=== PATIENT | female | born 1965 | race Caucasian/White ===

== ENCOUNTER → 2023-11-24 10:42 | Outpatient (REF) | payer OTHER, SELFPAY ==
[2023-11-24 11:46] LABS: ALT (SGPT) 37 U/L (0-35); AST (SGOT) 28 U/L (14-36); Albumin 4.4 g/dl (3.5-5.0); Alkaline Phosphatase 85 U/L (38-126); Blood Urea Nitrogen 22 mg/dl (7-17); Calcium 9.8 mg/dl (8.4-10.2); Carbon Dioxide 27 mmol/L (22-30); Chloride 104 mmol/L (98-107); Glucose 119 mg/dl (70-99); HDL Cholesterol 44 mg/dl; LDL Cholesterol, Calculated 138 mg/dl; Potassium 4.5 mmol/L (3.5-5.1); Sodium 141 mmol/L (135-145); Total Bilirubin 0.5 mg/dl (0.2-1.3); Total Cholesterol 213 mg/dl (50-199); Total Protein 7.5 g/dl (6.3-8.2); Triglyceride 155 mg/dl (10-149); Very Low Density Lipoprotein 31 mg/dl (0-30); eGFR > 60.00
[2023-11-24 11:48] LABS: Microalbumin, Random Urine 1.8 mg/dl (0.6-1.7)
[2023-11-24 11:51] LABS: Microalbumin/creatinine Ratio 8.9 mg/g
[2023-11-24 12:15] LABS: TSH 0.79 uIU/ml (0.47-4.68)
[2023-11-24 12:50] LABS: Glycohemoglobin (HgbA1c) 6.2 % (4.0-5.6)
== END ==
LOC: REG 10:42
PROVIDERS: ATTENDING PHYSICIAN Nurse Practitioner Family; FAMILY PHYSICIAN Nurse Practitioner Family
DX: E78.2 Mixed hyperlipidemia (principal); E03.9 Hypothyroidism, unspecified; E11.9 Type 2 diabetes mellitus without complications
CPT/HCPCS: 36415; 80053; 80061; 82043; 82570; 83036; 84443

== ENCOUNTER → 2024-05-03 11:43 | Outpatient (REF) | payer OTHER, SELFPAY ==
[2024-05-03 13:28] LABS: ALT (SGPT) 41 U/L (0-35); AST (SGOT) 39 U/L (14-36); Albumin 4.2 g/dl (3.5-5.0); Alkaline Phosphatase 98 U/L (38-126); Blood Urea Nitrogen 17 mg/dl (7-17); Calcium 9.5 mg/dl (8.4-10.2); Carbon Dioxide 27 mmol/L (22-30); Chloride 105 mmol/L (98-107); Glucose 104 mg/dl (70-99); Potassium 4.4 mmol/L (3.5-5.1); Sodium 139 mmol/L (135-145); Total Bilirubin 0.5 mg/dl (0.2-1.3); eGFR > 60.00
[2024-05-04 08:59] LABS: Glycohemoglobin (HgbA1c) 6.1 % (4.0-5.6)
== END ==
LOC: REG 11:43
PROVIDERS: ATTENDING PHYSICIAN Nurse Practitioner Family
DX: E11.9 Type 2 diabetes mellitus without complications (principal); R74.01 Elevation of levels of liver transaminase levels; E03.9 Hypothyroidism, unspecified
CPT/HCPCS: 36415; 80053; 83036

== ENCOUNTER → 2024-10-04 11:27 | Outpatient (REF) | payer OTHER, SELFPAY ==
[2024-10-04 13:27] LABS: Urine Albumin Negative (Neg - Trace); Urine Bilirubin Negative (Negative); Urine Character Clear (Clear); Urine Color Yellow; Urine Glucose Negative (Negative); Urine Ketone Negative (Negative); Urine Leukocyte 2+ (Negative); Urine Nitrite Negative (Negative); Urine Occult Blood Trace (Negative); Urine Urobilinogen Negative (Neg - 1+)
[2024-10-04 14:10] LABS: ALT (SGPT) 29 U/L (0-35); AST (SGOT) 28 U/L (14-36); Albumin 4.1 g/dl (3.5-5.0); Alkaline Phosphatase 87 U/L (38-126); Blood Urea Nitrogen 17 mg/dl (7-17); Calcium 9.3 mg/dl (8.4-10.2); Carbon Dioxide 28 mmol/L (22-30); Chloride 103 mmol/L (98-107); Glucose 114 mg/dl (70-99); HDL Cholesterol 40 mg/dl; LDL Cholesterol, Calculated 93 mg/dl; Potassium 4.3 mmol/L (3.5-5.1); Sodium 140 mmol/L (135-145); Total Bilirubin 0.5 mg/dl (0.2-1.3); Total Cholesterol 180 mg/dl (50-199); Total Protein 7.1 g/dl (6.3-8.2); Triglyceride 238 mg/dl (10-149); Very Low Density Lipoprotein 47 mg/dl (0-30); eGFR > 60.00
[2024-10-04 14:11] LABS: Urine Mucus Moderate; Urine Squamous Cell >30 /LPF (Few)
[2024-10-04 14:12] LABS: Urine Bacteria Moderate (Negative)
[2024-10-04 14:17] LABS: Urine Protein 6 mg/dl
[2024-10-04 15:12] LABS: Glycohemoglobin (HgbA1c) 6.3 % (4.0-5.6)
== END ==
LOC: REG 11:27
PROVIDERS: ATTENDING PHYSICIAN Internal Medicine Rheumatology; FAMILY PHYSICIAN Nurse Practitioner Family
DX: I10 Essential (primary) hypertension (principal); E78.1 Pure hyperglyceridemia; E78.2 Mixed hyperlipidemia; E03.9 Hypothyroidism, unspecified; R73.9 Hyperglycemia, unspecified; L40.9 Psoriasis, unspecified; M79.7 Fibromyalgia; R80.9 Proteinuria, unspecified
CPT/HCPCS: 36415; 80053; 80061; 81003; 81015; 82570; 83036; 84156

== ENCOUNTER → 2024-10-28 19:29 | Outpatient (REF) | payer OTHER, SELFPAY | LOC: WDC 19:29 | PROVIDERS: ATTENDING PHYSICIAN Obstetrics & Gynecology Gynecology; FAMILY PHYSICIAN Nurse Practitioner Family | DX: Z12.31 Encounter for screening mammogram for malignant neoplasm of breast (principal); Z01.419 Encounter for gynecological examination (general) (routine) without abnormal findings | CPT/HCPCS: 77063; 77067 ==

== ENCOUNTER 2024-12-09 18:21 | Day surgery (SDC) | payer OTHER, SELFPAY ==
[2024-12-09] VITALS (14 sets, daily range): BP systolic 117–177; BP diastolic 59–104; BMI 39.8
[2024-12-09 14:25] LABS: % Basophils 0.4 % (0-2); % Eosinophils 0.9 % (0-6); % Immature Granulocytes 0.5 % (0-0.5); % Lymphocytes 11.6 % (20.5-51.1); % Monocytes 7.2 % (1.7-9.3); % Neutrophils 79.4 % (42.2-75.2); Absolute Basophils 0.1 10^3/uL (0-0.2); Absolute Eosinophils 0.1 10^3/uL (0-0.7); Absolute Immature Granulocytes 0.1 10^3/uL (0-0.05); Absolute Lymphocytes 1.8 10^3/uL (1.2-3.4); Absolute Monocytes 1.1 10^3/uL (0.1-0.6); Absolute Neutrophils 12.6 10^3/uL (1.4-6.5); Hematocrit 39.2 % (37.0-47.0); Hemoglobin 13.2 g/dL (12.0-16.0); Mean Corp Hgb Conc. 33.7 g/dL (33.0-37.0); Mean Corpuscular Hgb 29.7 pg (27.0-31.0); Mean Corpuscular Volume 88.1 fL (81.0-99.0); Mean Platelet Volume 11.1 fL (7.4-10.4); Nucleated Red Blood Cells % 0 %; Platelet Count 249 10^3/uL (130-400); Red Blood Cell Count 4.45 10^6/uL (4.20-5.40); Red Cell Dist. Width 12.4 % (11.5-14.5); White Blood Cell Count 15.8 10^3/uL (4.8-10.8)
--- NOTE | 2024-12-09 14:38 | ED.GENMED ---
History of Present Illness
General
Chief Complaint: Flank Pain
Time Seen by Provider: 12/09/24 14:24
History of Present Illness
History of Present Illness:
59-year-old female with history of hypertension presents to the emergency department for evaluation of sudden onset right flank pain that began this morning. Pain was mild to moderate in nature however gradually worsened throughout the day with a
sudden increase in pain rating across the abdomen. Pain is rated as 8 out of 10 currently, radiates from the right flank to the right lower quadrant. No fevers or chills but does have nausea and vomiting. Prior abdominal surgical history includes
a hysterectomy.
Review of Systems
Review of Systems
Allergies reviewed?: Yes
All Other Systems: ROS reviewed and negative except as documented in HPI and ROS
Phy Exam
Physical Exam
Physical Exam:
GEN: Well appearing, NAD, WDWN
HEENT: Oral mucosa moist, no scleral icterus
Cardiac: Regular rate
Lung: No respiratory distress, no tachypnea
Abdomen: Significant tenderness to the right upper and right lower quadrant as well as left lower quadrant, no rigidity, no CVA tenderness
MSK: No gross deformity or injuries
Skin: Good color, no pallor or jaundice, no rashes
Neuro: AO x3, moves all extremities freely
Psych: Calm, cooperative
Course
Orders/Labs/Results
Orders:
Orders
12/09/24 13:49
CMP [Comprehensive Metabolic Panel] Urgent
Complete Blood Count/With Diff Urgent
12/09/24 14:37
CT Abd/Pel (IV only)-DH only Urgent
Comment:
Reason For Exam: R flank pain
0.9% Sodium Chloride 1000 ml [Nss] 1,000 ml IV BOLUS
Ketorolac [Toradol] 15 mg IV NOW STA
Ondansetron Injectable [Zofran] 4 mg IV NOW STA
12/09/24 16:05
Urinalysis Reflex To Culture Urgent
Date Specimen was Collected: 12/09/24
Time Specimen was Collected: 15:36
12/09/24 17:00
Piperacillin/Tazo 3.375 Gram [Zosyn] 3.375 gram in 50 ml IV NOW
12/09/24 18:00
Pantoprazole [Protonix IV] 40 mg IV DAILY
12/09/24 18:03
Admit/Transfer Patient As Directed
Co-Sign Provider:
Level of Care: Observation services
Assign to:: Telemetry
Physician / Group: Dr Pacheco
Diagnosis: Appendicitis
Reason for Telemetry: Arrhythmia
Date to Stop Telemetry: 12/12/24
Time to Stop Telemetry: 11:00
PRN Pain Medication Management As Directed
May give lesser potent ordered pain med per pt: Yes
preference::
Protocol:: Medication orders for pain may be administered in a
manner that supports deferring to patient preference
when the pt is:
- Requesting an ordered lesser potent pain medication.
Least to most potent pain medications are defined
as: acetaminophen < NSAID < tramadol < opioids
(morphine, oxycodone, hydromorphone).
- Requesting a lesser dose of the same medication IF
ORDERED.
- Requesting a less intrusive route of administration
if both routes are prescribed by the provider (PO <
IV).
12/09/24 18:04
Code Status As Directed
Resuscitation Status: Full Code
12/09/24 18:06
HYDROmorphone [Dilaudid] 0.5 mg IV Q4HPRN PRN
HydrALAZINE [Apresoline] 10 mg IV Q6HPRN PRN
12/09/24 18:08
Consult Surgery [SURGICAL CONSULT] Urgent
Consulting Provider: Ralph Ontiveros
Was physician already notified: Yes
Reason for consult: Appendicitis
12/09/24 18:10
MetroNIDAZOLE 500 MG/100 ML [Flagyl 500 mg] 100 ml IV Q8
12/09/24 19:00
Lactated Ringers [Lr] 1,000 ml IV 125 mls/hr
Ondansetron Injectable [Zofran] 4 mg IV Q6HPRN PRN
12/09/24 22:00
CefTRIAXone [Rocephin] 1,000 mg IV Q24H
12/12/24 11:00
DC Protocol for Telemetry ONCE
Abnormal Lab Results
12/09/24
13:49
WBC 15.8 H 10^3/uL
(4.8-10.8)
MPV 11.1 H fL
(7.4-10.4)
Abs Immat Gran (auto) 0.1 H 10^3/uL
(0-0.05)
Absolute Neuts (auto) 12.6 H 10^3/uL
(1.4-6.5)
Absolute Monos (auto) 1.1 H 10^3/uL
(0.1-0.6)
Neutrophils % 79.4 H %
(42.2-75.2)
Lymphocytes % 11.6 L %
(20.5-51.1)
BUN 18 H mg/dl
(7-17)
Glucose 149 H mg/dl
(70-99)
AST 37 H U/L
(14-36)
ALT 41 H U/L
(0-35)
12/09/24 13:49
12/09/24 13:49
Vital Signs
Initial and Last Documented VS:
Initial Vital Signs
Temp Pulse Resp BP Pulse Ox
98.0 F 66 20 177/96 96
12/09/24 13:41 12/09/24 13:41 12/09/24 13:41 12/09/24 13:41 12/09/24 13:41
Last Documented Vital Signs
Temp Pulse Resp BP Pulse Ox
98.3 F 71 14 143/70 98
12/09/24 18:22 12/09/24 19:00 12/09/24 19:00 12/09/24 19:00 12/09/24 19:00
MDM/Problems Addressed
MDM/Problems Addressed:
Imaging obtained due to patient's degree of pain at which point she is found to have acute appendicitis. Case discussed with general surgery, patient would be admitted to the hospitalist service with plans for the OR tonight for definitive
management
*Critical Care Note
Total Time (30-74mins, 75-104mins- exclusive of procedures): Not Applicable
ED Attending Note
-
Portions of this chart may have been created with voice recognition software.� Occasional wrong word or��sound alike� substitutions may have occurred due to the inherent limitations of voice recognition software.
Discharge Plan
Departure
Patient Disposition: Admit
Date of Disposition: 12/09/24
Time of Disposition: 17:41
Admit to: Med/Surg
Presentation/result/management discussed w/ accepting MD/DO: Hospitalist
Discharge Problem:
Acute appendicitis
Interventions
Interventions:
*Risk Screen - Suicide Last Done: 12/09/24 13:41
*General Assessment Last Done: 12/09/24 13:41
*Neglect/Abuse Screening Last Done: 12/09/24 18:32
*ED- Fall Risk Assessment Last Done: 12/09/24 18:32
*ED COVID-19 Vaccine History Last Done: 12/09/24 14:51
QB-Jqkcgj-Umzjgcbpde Assessment Last Done: 12/09/24 18:15
ED-Female Genitourinary Assessment Last Done: 12/09/24 18:15
[2024-12-09 14:43] LABS: ALT (SGPT) 41 U/L (0-35); AST (SGOT) 37 U/L (14-36); Albumin 4.2 g/dl (3.5-5.0); Alkaline Phosphatase 78 U/L (38-126); Blood Urea Nitrogen 18 mg/dl (7-17); Calcium 9.2 mg/dl (8.4-10.2); Carbon Dioxide 26 mmol/L (22-30); Chloride 107 mmol/L (98-107); Glucose 149 mg/dl (70-99); Potassium 4.5 mmol/L (3.5-5.1); Sodium 140 mmol/L (135-145); Total Bilirubin 0.7 mg/dl (0.2-1.3); Total Protein 7.4 g/dl (6.3-8.2); eGFR > 60.00
[2024-12-09] MEDS: TORADOL 15 MG IV (14:52)
[2024-12-09] MEDS: ZOFRAN 4 MG IV (14:52)
[2024-12-09] MEDS: NSS 1000 IV (14:53)
[2024-12-09 16:26] LABS: Urine Albumin Negative (Neg - Trace); Urine Bilirubin Negative (Negative); Urine Character Clear (Clear); Urine Color Yellow; Urine Glucose Negative (Negative); Urine Ketone Negative (Negative); Urine Leukocyte Negative (Negative); Urine Nitrite Negative (Negative); Urine Occult Blood Negative (Negative); Urine Specific Gravity 1.015 (<1.030); Urine Urobilinogen Negative (Neg - 1+)
[2024-12-09] MEDS: ZOSYN 50 IV (17:28)
--- NOTE | 2024-12-09 17:55 | HPS.HSE ---
Family Physician
-
Family Physician: MARLENA Gutierrez
Chief Complaint
-
Abdominal pain
History of Present Illness
Patient 59 years old female past medical history hypertension, hypothyroidism, GERD, vitamin D deficiency, depression, came into the hospital with abdominal pain. Patient was not feeling well over the weekend but today had the sudden onset of right
lower quadrant abdominal pain moderate to severe intensity progressively getting worse associated with nausea. No chest pain or shortness of breath. No vomiting. No fevers or chills. Blood pressure noted to be elevated but patient in significant
amount of pain. Denies dysuria urgency or frequency. In the ER, white blood cell count [address] scan shows acute uncomplicated appendicitis. She was referred to surgery who asked medical service/hospitalist to admit.
Medical History
Past Medical History
Past Medical History: Reports Other (Hypertension, hypothyroidism, GERD, vitamin D deficiency, depression)
Past Surgical History: Reports None
Social History
Tobacco: Non-smoker
Alcohol: None
Drug: None
Family History
Family History: Not pertinent
Allergies / Home Medications
Allergies reflects when Allergies were last updated in [employer].
Home Medications with original date entered in [employer]
Allergy/Medication List:
Allergies
Allergy/AdvReac Type Severity Reaction Status Date / Time
Sulfa (Sulfonamide Allergy Rash Verified 12/09/24 13:41
Antibiotics)
sulfamethoxazole Allergy Rash Verified 12/09/24 13:41
trimethoprim Allergy Rash Verified 12/09/24 13:41
Review of Systems
-
A 12 point ROS was completed and negative except as noted: Yes
Physical Exam
Vital Signs
Vital Signs
Temp Pulse Resp BP Pulse Ox
98.0 F 66 20 177/96 96
12/09/24 13:41 12/09/24 13:41 12/09/24 13:41 12/09/24 13:41 12/09/24 13:41
Physical exam:
General: Acutely ill
HEENT: Normocephalic, Atraumatic and Moist Mucous Membranes
Respiratory: Clear to Auscultation; Negative Wheezes, Rales or Rhonchi
Cardiac: Regular Rhythm and S1/S2
GI: soft, exquisite tenderness in the right lower quadrant, and Nondistended
Musculoskeletal: No Clubbing, No Cyanosis and No Edema
Neuro: Awake, Alert and Oriented, no neurological Deficit
Psych: Calm
Physical Exam
General: Other
Laboratory Results
-
12/09/24 13:49
12/09/24 13:49
Laboratory Results
Total Bilirubin 0.7 mg/dl (0.2-1.3) 12/09/24 13:49
AST 37 U/L (14-36) H 12/09/24 13:49
ALT 41 U/L (0-35) H 12/09/24 13:49
Alkaline Phosphatase 78 U/L (38-126) 12/09/24 13:49
Data Reviewed
-
CT Scan: Image Personally Visualized and interpreted
Lab Data: Labs Reviewed by me
Impression/Plan
-
IMPRESSION:
Patient 59 years old female with history of hypertension dyslipidemia hypothyroidism GERD who came into the hospital with acute appendicitis.
PLAN:
Acute appendicitis:
Keep n.p.o.
IV fluid
IV antibiotics, Rocephin and Flagyl
Pain control and antiemetics as needed
Surgery consult-discussed with surgery via [facility]
Hypertension:
IV hydralazine as needed
Resume oral hypertensive when able to take oral-losartan 100 mg p.o. daily
Hypothyroidism:
On Synthroid 100 mcg p.o. daily at home
Dyslipidemia:
She appears to be on statins at home
Depression:
On escitalopram 5 mg p.o. daily
GERD:
On Prilosec [id number] as needed
IV Protonix for now
Vitamin D deficiency:
On vitamin D supplementation-hold until discharge
DVT prophylaxis:
SCDs
CODE STATUS:
Full code
Time spent 75-minute
[2024-12-09] MEDS: PROTONIX IV 40 MG IV (18:34)
[2024-12-09] MEDS: FLAGYL 500 MG 100 IV (18:34)
[2024-12-09] MEDS: LR 1000 IV ×2 (18:35→23:22)
--- NOTE | 2024-12-09 21:10 | CON.GS ---
Consultation
-
Requesting Provider: silver
Performing Provider: karl
Reason for Consultation: acute appendicitis
Medical History
-
Chief Complaint: Abd pain
History of Present Illness:
59F with acute onset abd pain that began several days ago as generalized discomfort. Migrated to [facility] today, progressive and severe, a/w nausea Denies vomiting. Denies f/c, changes t stool/urine.
Past Medical History
Past Medical History: Other ((Hypertension, arrhythmia, hypothyroidism, GERD, vitamin D deficiency, depression)
Past Surgical History: Reviewed & Noncontributory
Social History
Tobacco: Non-Smoker
Alcohol: None
Drug: None
Family History
Family History: Reviewed & Noncontributory
Allergies / Home Medications
Allergy/AdvReac Type Severity Reaction Status Date / Time
Sulfa (Sulfonamide Allergy Rash Verified 12/09/24 13:41
Antibiotics)
sulfamethoxazole Allergy Rash Verified 12/09/24 13:41
trimethoprim Allergy Rash Verified 12/09/24 13:41
�Medication �Instructions �Recorded �Confirmed �Type
cholecalciferol (vitamin D3) 50 50 mcg PO DAILY 12/09/24 12/09/24 History
mcg (2,000 unit) tablet (Vitamin
D3)
cyclobenzaprine 10 mg tablet 10 mg PO DAILYPRN PRN back pain 12/09/24 12/09/24 History
diclofenac sodium 1 % topical gel 4 g topical DAILYPRN PRN back pain 12/09/24 12/09/24 History
diltiazem HCl 120 mg 120 mg PO BIDPRN PRN palpitations 12/09/24 12/09/24 History
capsule,extended release 12 hr
escitalopram oxalate 10 mg tablet 5 mg PO DAILY 12/09/24 12/09/24 History
levothyroxine 100 mcg tablet 100 mcg PO DAILY 12/09/24 12/09/24 History
losartan 100 mg tablet 100 mg PO DAILY 12/09/24 12/09/24 History
omeprazole 40 mg capsule,delayed 40 mg PO DAILYPRN PRN gerd 12/09/24 12/09/24 History
release
pravastatin 10 mg tablet 10 mg PO DAILY 12/09/24 12/09/24 History
zolpidem 5 mg tablet 5 mg PO HS 12/09/24 12/09/24 History
Review of Systems
-
A 10 point review of systems was completed, and was negative except as per HPI.
Physical Exam
Vital Signs
Temp Pulse Resp BP Pulse Ox
98.3 F 70 14 143/70 98
12/09/24 20:20 12/09/24 20:20 12/09/24 20:20 12/09/24 20:20 12/09/24 20:20
12/08/24 12/09/24 12/10/24
06:59 06:59 06:59
Actual Weight 102 kg
Body Mass Index (BMI) 39.8
Lab Results
12/09/24 13:49
12/09/24 13:49
WBC 15.8 10^3/uL (4.8-10.8) H 12/09/24 13:49
Hgb 13.2 g/dL (12.0-16.0) 12/09/24 13:49
Hct 39.2 % (37.0-47.0) 12/09/24 13:49
Plt Count 249 10^3/uL (130-400) 12/09/24 13:49
Abs Immat Gran (auto) 0.1 10^3/uL (0-0.05) H 12/09/24 13:49
Neutrophils % 79.4 % (42.2-75.2) H 12/09/24 13:49
Physical Exam
General: Well Developed, Well Nourished and No Apparent Distress
HEENT: Normocephalic and Anicteric
GI: Soft, Non Distended and Tender (ttp rlq)
Skin: Warm and Dry
Neuro: AO x 3
Psych: Calm
Data Reviewed
-
CT Scan: Image Personally Visualized and interpreted, Report Reviewed by me, Discussed with Physician, Discussed with Patient and Discussed with Family
Labs: Labs Reviewed by me and Discussed with Physician
Assessment / Plan
-
59F with acute apendicitis
AFVSS, ttp to rlq
wbc 15K
CT with retrcecal acute appendicitis
Plan:
Hospitalist admit
OCTOR for lap appy
IV abx
--- NOTE | 2024-12-09 21:57 | W.IMMPOSTOP ---
Surgical Immed Post Op Note
-
Primary Surgeon: Rama
Pre-op Diagnosis: Acute appendicitis
Post-op Diagnosis: Same
Procedure Performed: Laparoscopic appendectomy
Anesthesia Type: GETA
Specimen / Cultures: Appendix
Estimated Blood Loss: 10cc
Complications: None immediate
Operative Findings: Inflamed appendix densely adherent to cecum in retrocecal position, no perforation, no contamination
--- NOTE | 2024-12-09 22:09 | OR.RPT ---
Operative Report
Operative Report
Primary Surgeon: Rama
Pre-op Diagnosis: Acute appendicitis
Post-op Diagnosis: Same
Procedure Performed: Laparoscopic appendectomy
Anesthesia Type: GETA
Specimen / Cultures: Appendix
Estimated Blood Loss: 10cc
Complications: None immediate
Operative Findings: Inflamed appendix densely adherent to cecum in retrocecal position, no perforation, no contamination
Date of Surgery: 12/09/24
Indications: This 59F developed right lower quadrant abdominal pain and on workup was found to have acute appendicitis. Laparoscopic appendectomy was elected.
Description of procedure: The patient was placed on the operating table in the supine position. General anesthesia was induced. A time-out was completed verifying correct patient, procedure, site, positioning, and special equipment prior to
beginning this procedure. An orogastric tube was placed. The abdomen was prepped and draped in the usual sterile fashion. A stab incision was made in left upper quadrant and the Veress needle was inserted. Proper position was confirmed by aspiration
and saline meniscus test. The abdomen was insufflated with carbon dioxide to a pressure of 12 mmHg. The patient tolerated insufflation well.
A 5mm optical trocar was then inserted at the left lower quadrant. The laparoscope was inserted and the abdomen inspected. No injuries from initial trocar placement or Veress needle insertion were noted. Additional trocars were then inserted in the
following locations: a 12-mm trocar at the umbilicus and a 5-mm trocar midline in the suprapubic space. The abdomen was inspected and no abnormalities were found. The table was placed in the Trendelenburg position with the right side up. The tip of
the appendix was in retrocecal position and densely adherent to the cecum. A window was created at the base of the mesentery of the appendix with a maryland grasper and the appendix was taken with a cuff of cecum using a laparoscopic linear cutting
stapler with a 45mm vásquez load. This maneuver exposed the appendiceal blood supply which was controlled with the Voyant device by marching in an cephalad direction taking care not to injure the cecum itself. Ultimately the appendix was freed from the
cecum and placed in an endoscopic retrieval bag, removed through the umbilical port, and passed off the table as a specimen.
We then turned our attention to the staple line, which was noted to be hemostatic. All free fluid was suctioned. The umbilical trocar site was closed at the fascial level laparoscopically with 2-0 PDS under direct vision. Secondary trocars were
removed under direct vision and noted to be hemostatic. The laparoscope was withdrawn and the abdomen was allowed to collapse. The skin was closed with subcuticular sutures of 4-0 monocryl and topical skin adhesive. The orogastric tube was removed.
The patient tolerated the procedure well and was taken to the postanesthesia care unit in stable condition.
[2024-12-09] MEDS: NSS (PRESERVATIVE FREE) IV (22:56)
--- NOTE | 2024-12-09 23:00 | PTCARENOTE ---
Pt arrived to [facility] from PACU at 2245 in a bed. Pt has 3 lap sites and 1 poke site. Pt placed on exerciser NSR. Admission questions answered. Bed locked and in lowest position. Pt oriented to room and call neves. Care ongoing.
[2024-12-09] MEDS: ROCEPHIN 1000 MG IV (23:21)
[2024-12-09] MEDS: STERILE WATER FOR INJECTION 10 ML IV (23:21)
[2024-12-10] MEDS: FLAGYL 500 MG 100 IV ×2 (00:23→07:48)
[2024-12-10 00:50] VITALS: BP 122/57
[2024-12-10 01:50] VITALS: BP 120/53
[2024-12-10 03:05] VITALS: BP 105/54
[2024-12-10] MEDS: SYNTHROID 100 MCG PO (05:26)
[2024-12-10] MEDS: TYLENOL 1000 MG PO (05:30)
[2024-12-10 07:15] VITALS: BP 97/55
[2024-12-10] MEDS: LR 1000 IV (07:46)
[2024-12-10] MEDS: LEXAPRO 5 MG PO (07:48)
[2024-12-10] MEDS: PROTONIX IV 40 MG IV (07:49)
[2024-12-10] MEDS: NSS (PRESERVATIVE FREE) 10 ML IV (07:49)
[2024-12-10 07:59] LABS: % Basophils 0.1 % (0-2); % Immature Granulocytes 0.9 % (0-0.5); % Monocytes 1.5 % (1.7-9.3); % Neutrophils 92.5 % (42.2-75.2); Absolute Immature Granulocytes 0.1 10^3/uL (0-0.05); Absolute Lymphocytes 0.7 10^3/uL (1.2-3.4); Absolute Monocytes 0.2 10^3/uL (0.1-0.6); Absolute Neutrophils 12.8 10^3/uL (1.4-6.5); Hemoglobin 12.5 g/dL (12.0-16.0); Mean Corp Hgb Conc. 33.8 g/dL (33.0-37.0); Mean Corpuscular Hgb 29.8 pg (27.0-31.0); Mean Corpuscular Volume 88.1 fL (81.0-99.0); Mean Platelet Volume 11.1 fL (7.4-10.4); Nucleated Red Blood Cells % 0 %; Platelet Count 218 10^3/uL (130-400); Red Cell Dist. Width 12.5 % (11.5-14.5); White Blood Cell Count 13.8 10^3/uL (4.8-10.8)
--- NOTE | 2024-12-10 08:23 | W.PN.HOSP.TC ---
Today's Communication/Plan
-
Discharge planning
Assessment / Plan
Assessment / Plan
Physical exam:
General: Well Developed, Well Nourished and No Apparent Distress
HEENT: Normocephalic, Atraumatic and Moist Mucous Membranes
Respiratory: Clear to Auscultation; Negative Wheezes, Rales or Rhonchi
Cardiac: Regular Rhythm and S1/S2
GI: Soft, postop, mild tender and Nondistended
Musculoskeletal: No Clubbing, No Cyanosis and No Edema
Neuro: Awake, Alert and Oriented
Psych: Calm
A/P:
Acute appendicitis:
Status post surgery, laparoscopic appendectomy
Surgery consult appreciated
Regular diet
Surgery cleared her for discharge
Hypertension:
IV hydralazine as needed
Resume oral hypertensive when able to take oral-losartan 100 mg p.o. daily
Hypothyroidism:
On Synthroid 100 mcg p.o. daily at home
Dyslipidemia:
She appears to be on statins at home
Depression:
On escitalopram 5 mg p.o. daily
GERD:
On Prilosec [id number]-[id number] as needed
IV Protonix for now
Vitamin D deficiency:
On vitamin D supplementation-hold until discharge
DVT prophylaxis:
SCDs
CODE STATUS:
Full code
Anticipated Discharge: Today
Subjective/Interval History
-
Date of Service: December 10, 2024
Patient doing well postop
Objective Data
-
Labs:
Laboratory Results
12/10/24
07:28
WBC 13.8 H
Hgb 12.5
Hct 37.0
Plt Count 218
Sodium Pending
Potassium Pending
Chloride Pending
Carbon Dioxide Pending
BUN Pending
Creatinine Pending
Glucose Pending
Calcium Pending
Vital Signs:
Vital Signs
Temp Pulse Resp BP Pulse Ox
98.2 F 72 16 97/55 98
12/10/24 07:15 12/10/24 07:15 12/10/24 07:15 12/10/24 07:15 12/10/24 07:15
I&O
12/09/24 12/10/24 12/11/24
06:59 06:59 06:59
Intake Total 1555 / 1555
Balance 1555 / 1555
[2024-12-10 08:32] LABS: Blood Urea Nitrogen 18 mg/dl (7-17); Calcium 8.6 mg/dl (8.4-10.2); Carbon Dioxide 24 mmol/L (22-30); Chloride 105 mmol/L (98-107); Estimated Creatinine Clearance 69 ml/min; Glucose 201 mg/dl (70-99); Potassium 4.4 mmol/L (3.5-5.1); Sodium 137 mmol/L (135-145); eGFR > 60.00
--- NOTE | 2024-12-10 10:29 | W.PN.GS2 ---
Today's Communication / Plan
-
DC home
Assessment / Plan
-
59F POD1 s/p lap appy for acute appendicitis
Doing well postop, meets criteria for DC
Subjective Data
-
Date of Service: December 10, 2024
AFVSS, ambulating, voiding, winter PO pain controlled
Objective Data
-
Intake and Output
12/09/24 12/10/24 12/11/24
06:59 06:59 06:59
Intake Total 1555 / 1555
Balance 1555 / 1555
Intake:
Oral fluids 480 / 480
IV fluids (Total) 975 / 975
Normosol 100 / 100
IV piggybacks 100 / 100
Other:
Number of approximated LARGE 1
amounts of urine
Vital Signs
Temp Pulse Resp BP Pulse Ox
98.2 F 72 16 97/55 98
12/10/24 07:15 12/10/24 08:55 12/10/24 07:15 12/10/24 08:55 12/10/24 07:15
Lab Results
12/10/24 07:28
12/10/24 07:28
Calcium 8.6 mg/dl (8.4-10.2) 12/10/24 07:28
Total Bilirubin 0.7 mg/dl (0.2-1.3) 12/09/24 13:49
AST 37 U/L (14-36) H 12/09/24 13:49
ALT 41 U/L (0-35) H 12/09/24 13:49
Alkaline Phosphatase 78 U/L (38-126) 12/09/24 13:49
Total Protein 7.4 g/dl (6.3-8.2) 12/09/24 13:49
Albumin 4.2 g/dl (3.5-5.0) 12/09/24 13:49
Physical Exam
-
Gen: NAD
Abd: soft, approp ttp, incisions cdi
Patient has a santos catheter: No
Patient has a central line: No
--- NOTE | 2024-12-10 10:30 | W.DS.TRANS ---
DC Summary - [employer]
-
Discharge Instructions:
Instructions:
Stand-Alone Forms:
Changes to Home Medications: No
Discharge Medications:
DC Medications w/original date entered in [employer]
cholecalciferol (vitamin D3) 50 mcg (2,000 unit) tablet (Vitamin D3) 50 mcg PO DAILY Supplement 12/09/24
cyclobenzaprine 10 mg tablet 10 mg PO DAILYPRN PRN back pain 12/09/24
diclofenac sodium 1 % topical gel 4 g topical DAILYPRN PRN back pain 12/09/24
diltiazem HCl 120 mg capsule,extended release 12 hr 120 mg PO BIDPRN PRN palpitations 12/09/24
escitalopram oxalate 10 mg tablet 5 mg PO DAILY Mental Health/Anxiety 12/09/24
levothyroxine 100 mcg tablet 100 mcg PO DAILY Thyroid 12/09/24
losartan 100 mg tablet 100 mg PO DAILY Blood Pressure 12/09/24
omeprazole 40 mg capsule,delayed release 40 mg PO DAILYPRN PRN gerd 12/09/24
pravastatin 10 mg tablet 10 mg PO DAILY High Cholesterol 12/09/24
zolpidem 5 mg tablet 5 mg PO HS Sleep 12/09/24
Home Medication Changes
Pending Results: No
--- NOTE | 2024-12-10 11:22 | CM ---
Patient for d/c today. Patient seen bedside, initial assessment completed. Patient is a 59 year old female past medical history hypertension, hypothyroidism, GERD, vitamin D deficiency, depression, came into the hospital with abdominal pain.
Patient had a laparoscopic appendectomy procedure during this hospitalization.
Patient reports that she lives w/ spouse in [facility] 2 [address] to enter. Patient's xvnzqh-jp-grw also resides in the home. Patient is independent w/ ambulating, no device required. Independent w/ ADLs. Patient reports there is a shower chair in the
bathroom for her [id number]. Denies SNF/VN in the past.
Address, points of contact and insurance verified
PCP: Dacia Hemphill
Pharmacy: [facility]
Patient is currently admitted as OBS. OOBS form reviewed, patient given a copy, copy placed in chart
Per patient, spouse will transport home
Plan: Home; no needs
[2024-12-10 11:31] VITALS: BP 122/59
--- NOTE | 2024-12-10 11:33 | W.DCSUMMARY ---
Discharge Summary
Discharge Data
Date of Admission: 12/09/24
Date of Discharge: 12/10/24
-
Pending Results: No
Hospital Course
Patient 59 years old female came into the hospital with acute appendicitis. She was given antibiotics pain medication fluids and kept n.p.o. Surgery was consulted. She underwent laparoscopic appendectomy on 12/09. She did well postop. No need
for further antibiotics or strong pain medications. She is hemodynamically stable and tolerating diet and ambulating well. Surgery cleared for discharge. She will be discharged in stable condition today.
Discharge Plan
-
Patient Disposition: Home (Routine Discharge)
Discharge Diagnosis/Procedures: Laparoscopic appendectomy for acute appendicitis
Condition: Good
Diet: No restrictions
Activity: No strenuous activity
Driving Restrictions: No driving for 24 hours
Bathing Restrictions: OK to Shower
Wound Care: Allow skin glue to flake off on its own
Instructions: Appendectomy - Discharge instructions
Referrals:
Marry Hemphill CRNP [Family Provider] - in less than 1 week
Ralph Ontiveros MD [Active] - in two to four weeks
Additional Discharge Medication Instructions: Take ibuprofen as needed for pain, take with food. Follow directions on bottle. In between doses take extra strength tylenol as needed for pain. Follow directions on bottle. Use ice packs and/or heating
pads. If this is not enough take tramadol 1-2 tabs.
Prescriptions:
New
tramadol 50 mg tablet
50 - 100 mg PO Q6H PRN (Reason: Pain) Qty: 20 0RF
Continued
cyclobenzaprine 10 mg Tablet
10 mg PO DAILYPRN PRN (Reason: back pain)
omeprazole 40 mg Capsule,Delayed Release(Dr/Ec)
40 mg PO DAILYPRN PRN (Reason: gerd)
diltiazem HCl 120 mg Capsule,Extended Release 12 Hr
120 mg PO BIDPRN PRN (Reason: palpitations)
levothyroxine 100 mcg Tablet
100 mcg PO DAILY
pravastatin 10 mg Tablet
10 mg PO DAILY
zolpidem 5 mg Tablet
5 mg PO HS
losartan 100 mg Tablet
100 mg PO DAILY
escitalopram oxalate 10 mg Tablet
5 mg PO DAILY
diclofenac sodium 1 % Gel
4 g TOPICAL DAILYPRN PRN (Reason: back pain)
cholecalciferol (vitamin D3) [Vitamin D3] 50 mcg (2,000 unit) Tablet
50 mcg PO DAILY
Discharge Orders:
Discharge Patient (As Directed); Ordered 12/10/24
Ordered By: Ralph Ontiveros
Discharge Date and Time
Discharge Date/Time: 12/10/24 12:31
Print Language: ARMENIAN
== END 2024-12-10 12:31 | disposition home or self-care (01) ==
LOC: SDS 18:21
PROVIDERS: Physician Assistant; ATTENDING PHYSICIAN Hospitalist; CONSULT PHYSICIAN Surgery; EMERGENCY PHYSICIAN Emergency Medicine; FAMILY PHYSICIAN Nurse Practitioner Family
DX: K35.80 Unspecified acute appendicitis (principal)
CPT/HCPCS: 44970; 88304; 74177; 80048; 80053; 81003; 85025; 96361; 96374; 96375; 99285; C1776; Q9967

== ENCOUNTER → 2025-01-24 10:47 | Outpatient (REF) | payer OTHER, SELFPAY ==
[2025-01-24 12:21] LABS: ALT (SGPT) 27 U/L (0-35); AST (SGOT) 24 U/L (14-36); Albumin 4.4 g/dl (3.5-5.0); Alkaline Phosphatase 71 U/L (38-126); Blood Urea Nitrogen 17 mg/dl (7-17); Calcium 9.1 mg/dl (8.4-10.2); Carbon Dioxide 25 mmol/L (22-30); Chloride 107 mmol/L (98-107); Glucose 124 mg/dl (70-99); HDL Cholesterol 40 mg/dl; LDL Cholesterol, Calculated 126 mg/dl; Potassium 4.4 mmol/L (3.5-5.1); Sodium 143 mmol/L (135-145); Total Bilirubin 0.7 mg/dl (0.2-1.3); Total Cholesterol 217 mg/dl (50-199); Total Protein 7.3 g/dl (6.3-8.2); Triglyceride 255 mg/dl (10-149); Very Low Density Lipoprotein 51 mg/dl (0-30); eGFR > 60.00
[2025-01-24 12:36] LABS: Glycohemoglobin (HgbA1c) 6.8 % (4.0-5.6)
[2025-01-24 12:51] LABS: TSH Reflex To Free T4 1.32 uIU/ml (0.47-4.68)
== END ==
LOC: REG 10:47
PROVIDERS: ATTENDING PHYSICIAN Nurse Practitioner Family
DX: E03.9 Hypothyroidism, unspecified (principal); E78.2 Mixed hyperlipidemia; E11.9 Type 2 diabetes mellitus without complications
CPT/HCPCS: 36415; 80053; 80061; 83036; 84443

== ENCOUNTER → 2025-07-15 08:58 | Outpatient (REF) | payer OTHER, SELFPAY ==
[2025-07-15 12:56] LABS: ALT (SGPT) 48 U/L (0-35); AST (SGOT) 35 U/L (14-36); Albumin 4.2 g/dl (3.5-5.0); Alkaline Phosphatase 101 U/L (38-126); Blood Urea Nitrogen 18 mg/dl (7-17); Calcium 8.8 mg/dl (8.4-10.2); Carbon Dioxide 27 mmol/L (22-30); Chloride 106 mmol/L (98-107); Glucose 115 mg/dl (70-99); HDL Cholesterol 46 mg/dl; LDL Cholesterol, Calculated 108 mg/dl; Potassium 4.1 mmol/L (3.5-5.1); Sodium 141 mmol/L (135-145); Total Protein 7.5 g/dl (6.3-8.2); Very Low Density Lipoprotein 28 mg/dl (0-30); eGFR > 60.00
[2025-07-15 13:00] LABS: Microalb - Urine Creatinine 332.700 mg/dl
[2025-07-15 13:03] LABS: Microalbumin, Random Urine 2.6 mg/dl (0.6-1.7)
[2025-07-15 14:00] LABS: Glycohemoglobin (HgbA1c) 5.6 % (4.0-5.9)
== END ==
LOC: HWLAB 08:58
PROVIDERS: ATTENDING PHYSICIAN Nurse Practitioner Family
DX: E11.9 Type 2 diabetes mellitus without complications (principal); I10 Essential (primary) hypertension; E78.1 Pure hyperglyceridemia
CPT/HCPCS: 36415; 80053; 80061; 82043; 82570; 83036